=== PATIENT | female | born 1990 | race Caucasian/White ===

== ENCOUNTER → 2021-12-15 15:21 | Outpatient (CLI) | payer OTHER, SELFPAY ==
--- NOTE | ~2021-12-15 | US_ITS ---
EXAMINATION: US OB /maternal detail DATE: 12/15/2021 16:04 INDICATION: Second trimester anatomic survey TECHNIQUE: Real-time ultrasound of the pelvis was performed. COMPARISON: None. FINDINGS: There is a single living fetus in breech presentation. The placenta is anterior and 2.8 cm from the i nternal cervical os. heart rate is 145 beats per minute (bpm). cardiac activity and feta l movement are noted. The amniotic fluid index is subjectively normal. The following anatomy was identified as normal: 4 chamber heart 3 vessel cord cord insertion kidneys urinary bladder stomach spine diaphragm ventricles cisterna magna cerebellum The following biometric data were obtained: Biparietal diameter (BPD): 5.4 cm; head circumference (HC): 20.1 cm; abdominal circumference (AC): 17 .9 cm; femur length (FL): 3.9 cm. These measurements are concordant. Estimated weight is 519 g +/- 77 g, which correlates with the 61st percentile when 04/18/2022 i s used as estimated date of delivery. As single measurements, these parameters are each equal to the following estimated gestational ages w ith ranges of +/- 2 standard deviations: BPD: 22 weeks 3 days ( 20 weeks 5 days - 24 weeks 1 days). HC: 22 weeks 2 days ( 20 weeks 5 days - 23 weeks 5 days). AC: 22 weeks 6 days ( 20 weeks 5 days - 24 weeks 6 days). FL: 22 weeks 3 days ( 20 weeks 5 days - 24 weeks 2 days). estimated gestational age based solely on measurements from this exam is 22 weeks 4 days +/- 1 weeks 4 days. IMPRESSION: 1. Single living fetus in breech presentation. 2. Estimated weight is 519 g +/- 77 g, which correlates with the 61st percentile when 2 is used as estimated date of delivery. Reviewed, dictated and finalized at location F. IMPRESSION: 1. Single living fetus in breech presentation. 2. Estimated weight is 519 g +/- 77 g, which correlates with the 61st per centile when 04/18/2022 is used as estimated date of delivery.
== END ==
PROVIDERS: PCP Obstetrics & Gynecology Gynecology; Visit Provider Obstetrics & Gynecology Gynecology
DX: Z36.9 Encounter for antenatal screening, unspecified (principal); Z3A.22 22 weeks gestation of pregnancy
CPT/HCPCS: 76805

== ENCOUNTER 2022-01-19 15:11 | Outpatient (RCR) | payer OTHER, SELFPAY ==
[2022-01-19 17:10] VITALS: BP 116/72; PULSE 91
[2022-01-19 17:18] LABS: Appearance Urine Clear (Clear); Bilirubin Urine Negative (Negative); Blood Urine Negative (Negative); Glucose Urine UA Negative (Negative); Ketones Urine Negative (Negative); Leukocyte Esterase Ur Negative LEU/UL (Negative); Nitrate Urine Negative (Negative); Protein Urine Negative (Negative); Specific Grav Ur 1.015 (1.001-1.035); Urobilinogen Urine 0.2 mg/dL (<2.0); pH Urine 6.5 (5.0-9.0)
[2022-01-19 17:20] LABS: Add Urine Microscopic? NO; Color Urine Light Yellow (Yellow)
== END 2022-04-19 23:59 | disposition home or self-care (01) ==
LOC: ANHOBOP 15:11
PROVIDERS: Obstetrics & Gynecology; PCP Obstetrics & Gynecology Gynecology; Visit Provider Obstetrics & Gynecology Gynecology
DX: O36.8130 Decreased fetal movements, third trimester, not applicable or unspecified (principal); Z3A.27 27 weeks gestation of pregnancy
CPT/HCPCS: 59025; 81003

== ENCOUNTER → 2022-02-17 14:03 | Outpatient (CLI) | payer OTHER, SELFPAY ==
--- NOTE | ~2022-02-17 | US_ITS ---
EXAMINATION: US OB follow up DATE: 02/17/2022 14:23 INDICATION: Estimated size greater than expected for estimated gestational age. Assess growth a nd amniotic fluid index during third trimester . TECHNIQUE: Real-time ultrasound of the pelvis was performed. The interpreting radiologist was not pre sent for the study. COMPARISON: 12/15/2021 FINDINGS: There is a single living fetus in vertex presentation. The placenta is anterior and not low-lying. F etal heart rate is 144 beats per minute (bpm). The amniotic fluid index is 19.0 cm, which is normal (5th%-95%: 8.8-23.8 cm at 31 weeks estimated gestational age). The following biometric data were obtained: BPD: 8.2 cm -> 32 weeks 6 days Head circumference: 29.3 cm -> 32 weeks 2 days Abdominal circumference: 27.9 cm -> 32 weeks 0 days Femur length: 6.1 cm -> 31 weeks 6 days These measurements are concordant. Head circumference to abdominal circumference ratio: 1.05 (normal range 0.96-1.13). Estimated weight: 1891 g (+/-) 284 g or 4 lbs. 3 oz. (+/-) 10 oz. IMPRESSION: 1. Single living fetus in vertex presentation with heart rate of 144 bpm. 2. Normal amniotic fluid index of 19.0 cm. 3. Estimated weight is 49th percentile by Hadlock criteria when 04/16/2022 is used as the estim ated date of delivery (JANUARY). Please correlate with clinical information or earlier ultrasounds for mo st accurate JANUARY. Reviewed, dictated and finalized at location A. IMPRESSION: 1. Single living fetus in vertex presentation with heart rate of 144 bpm. 2. Normal amniotic fluid index of 19.0 cm. 3. Estimated weight is 49th percentile by Hadlock criteria when 2 is used as the estimated date of delivery (JANUARY). Please correlate with clinic al information or earlier ultrasounds for most accurate JANUARY.
== END ==
PROVIDERS: PCP Family Medicine; Visit Provider Nurse Practitioner
DX: O36.63X0 Maternal care for excessive fetal growth, third trimester, not applicable or unspecified (principal); Z3A.00 Weeks of gestation of pregnancy not specified
CPT/HCPCS: 76816

== ENCOUNTER 2022-04-13 05:39 | Inpatient (IN) | payer OTHER, SELFPAY ==
[2022-04-13] VITALS (84 sets, daily range): BP systolic 95–151; BP diastolic 48–110; PULSE 57–98; RESP 12–16; TEMP 36.3–36.8; O2SAT 86–100; BMI 30.2
[2022-04-13 07:05] LABS: Basophils Percent Auto 0.2 % (0.2-1.2); Eosinophils Percent Auto 0.3 % (0-4.4); Hematocrit 39.3 % (37.0-47.0); Immature Granulocyte Absolute 0.15 K/mm3 (0.00-0.031); Lymphocytes Absolute Auto 2.32 K/mm3 (0.9-3.2); Lymphocytes Percent Auto 15.5 % (18.3-44.2); Mean Corpuscular HGB Conc 33.1 g/dl (32-36); Mean Corpuscular Hemoglobin 31.8 pg (26-34); Mean Corpuscular Volume 96.1 fl (80-100); Mean Platelet Volume 10.1 fl (7.4-10.4); Monocytes Absolute Auto 0.9 K/mm3 (0.1-0.6); Monocytes Percent Auto 5.7 % (2.6-8.5); Neutrophils Absolute Auto 11.5 K/mm3 (1.3-6.7); Neutrophils Percent Auto 77.3 % (45.5-73.1); Platelet Count Result 255 k/mm3 (150-375); Red Blood Count 4.09 M/mm3 (4.2-5.4); Red Cell Distribution Width 12.7 % (11.5-14.5); White Blood Count 14.9 K/mm3 (4.5-10.0)
--- NOTE | 2022-04-13 07:19 | WPDOBADMIT ---
Obstetrics - Admit Note Admission Note: record reviewed. No pertinent additions to the history and/or any subsequent changes in the physical findings that are not consistent with the expected course of the were found. Additions to the history and/or subsequent changes in the physical findings follow. Here for MIL at 39 wks. Cervix 1-2/50/-2 Anterior. AROM with clear fluid.FHT cat. I. Start pitocin.
[2022-04-13] MEDS: OXYTOCIN 30 UNITS/NS 500 ML 30 UNITS/500 ML BAG 6 UNITS IV CONT (08:04)
[2022-04-13] MEDS: LACTATED RINGERS 1,000 ML 125 ML IV CONT ×3 (08:04→19:47)
--- NOTE | 2022-04-13 10:29 | WPDANESEPP ---
Anes - Eval Pre Procedure Procedure: labor epidural Date/Time: 04/13/22 10:29 Preop Diagnosis: labor pain Pre Op Diagnosis: IOL Patient Data Age: 31 Gender: F Height: 1.75 m Weight: 93 kg Last Vital Signs Temp 36.4 C L 04/13/22 10:23 Pulse 69 04/13/22 10:01 BP 126/68 04/13/22 10:01 Allergies Allergy/AdvReac Type Severity Reaction Status Date / Time amoxicillin Allergy Hives Verified 01/19/22 15:35 gluten Allergy Gastrointestinal Verified 01/19/22 15:35 Upset nickel Allergy Rash Verified 01/19/22 15:35 nitrofurantoin Allergy Rash Verified 01/19/22 15:35 [From Macrobid] Home Medications Medication Instructions Recorded Confirmed Type cholecalciferol (vitamin D3) 125 125 mcg PO DAILY 01/19/22 01/19/22 History mcg (5,000 unit) tablet (Vitamin D3) ferrous sulfate 325 mg (65 mg 325 mg PO DAILY 01/19/22 01/19/22 History iron) tablet vit no.95-ferrous 1 tablet PO DAILY 01/19/22 01/19/22 History fumarate 28 mg-folic acid 800 mcg tablet () magnesium 500 mg tablet 15 mg PO DAILY 03/23/22 03/23/22 History Laboratory Tests 04/13/22 04/13/22 04/13/22 06:58 06:58 06:58 WBC 14.9 K/mm3 H K/mm3 (4.5-10.0) RBC 4.09 M/mm3 L M/mm3 (4.2-5.4) Hgb 13.0 g/dL g/dL (12.0-15.0) Hct 39.3 % % (37.0-47.0) MCV 96.1 fl fl (80-100) MCH 31.8 pg pg (26-34) MCHC 33.1 g/dl g/dl (32-36) RDW 12.7 % % (11.5-14.5) Plt Count 255 k/mm3 k/mm3 (150-375) MPV 10.1 fl fl (7.4-10.4) Immature Gran % (Auto) 1.0 % H % (0-0.5) Neut % (Auto) 77.3 % H % (45.5-73.1) Lymph % (Auto) 15.5 % L % (18.3-44.2) [place] % (Auto) 5.7 % % (2.6-8.5) Eos % (Auto) 0.3 % % (0-4.4) Baso % (Auto) 0.2 % % (0.2-1.2) Lymph # (Auto) 2.32 K/mm3 K/mm3 (0.9-3.2) [place] # (Auto) 0.9 K/mm3 H K/mm3 (0.1-0.6) Eos # (Auto) 0.0 K/mm3 K/mm3 (0-0.3) Baso # (Auto) 0.0 K/mm3 K/mm3 (0.0-0.1) Abs Immat Gran (auto) 0.15 K/mm3 H K/mm3 (0.00-0.031) Absolute Neuts (auto) 11.5 K/mm3 H K/mm3 (1.3-6.7) Absolute Nucleated RBC 0.0 K/mm3 K/mm3 (0.0-0.012) Nucleated RBC % 0.0 % % (0.0-0.2) RPR Pending Blood Type A Positive Antibody Screen Negative Patient hx anesthesia problems: none Family hx anesthesia problems: none Results Review: All pre-operative results and documents have been reviewed as part of the pre-operative evaluation. [facility] Family History Family History Other Patient denies significant medical history Social History Social History Smoking status: Never smoker Second hand tobacco smoke exposure: No Substance use: never Spiritual care concerns: No Exam Day of Procedure 04/13/22 10:29
[2022-04-13] MEDS: ONDANSETRON INJ 4 MG/2 ML VIAL IV PUSH ×2 (11:28→17:06)
[2022-04-13] MEDS: FAMOTIDINE 20 MG/2 ML VIAL IV PUSH (15:31)
--- NOTE | 2022-04-13 19:59 | P.PNAN_ITS ---
Anes - Eval Final PreProcedure Day of Procedure 04/13/22 19:59 Heart: regular rate and rhythm Lungs: clear to auscultation and normal air movement Airway: Mallampati scale Neurological: alert and oriented Last oral intake: 2 hours ASA classification: II Emergent: no Anesthetic plan: proceed Anesthesia type and monitoring: regional epidural and standard monitoring Results Review: All pre-operative results and documents have been reviewed as part of the pre- operative evaluation. Informed Consent: The patient's anesthetic plan and its attendant risks and benefits were discussed with the patient/family/POA. Questions were solicited and answers provided to the satisfaction of the patient/family/POA.
--- NOTE | 2022-04-13 20:58 | WPDANESEPN ---
Anes - Epidural Procedure Note Date/Time: 04/13/22 20:58 Consent: I have discussed with the patient/family/POA, the placement of an epidural catheter and the use of epidural narcotic/local anesthetic for labor analgesia and/or postoperative pain management, including associated potential risks, benefits, complications and side effects. I have discussed alternative methods of labor analgesia and/or postoperative pain management. The patient/family/POA, understand(s) and wish(es) to proceed with epidural narcotic/local anesthetic for labor analgesia and/or postoperative pain management. Time-Out: A pre-procedural Time-Out was completed immediately before starting the procedure and confirmed: Patient Identification, Site, Procedure, Patient Position and the Availability of Requisite Equipment. Epidural Insertion Note Patient position: sitting Skin prep: chlorhexidine and sterile drape Needle: 18g Tuohy-Schliff Catheter: 20g Unstyleted Technique: Loss of resistance. Level of insertion: L3/4 Catheter skin livia (cm): 10 Length in epidural space (cm): 5 Skin anesthesia: lidocaine 1% Test dose: 1.5% Lidocaine with [id number] Epi, negative for subarachnoid Inj and negative for intravascular Inj Time of test dose: 20:46 Observations: tolerated well Complications: none
--- NOTE | 2022-04-13 21:00 | WPDANESEPPF ---
Anes - Initial Pre Proc Eval Procedure: labor epidural Date/Time: 04/13/22 20:35 Surgeon: Swetha Velasco MD Pre Op Diagnosis: Labor pain Pre Op Diagnosis: IOL Patient Data Age: 31 Gender: F Height: 1.75 m Weight: 93 kg Last Vital Signs Temp 36.8 C 04/13/22 16:15 Pulse 87 04/13/22 20:55 BP 128/61 04/13/22 20:55 Pulse Ox 100 04/13/22 20:55 Allergies Allergy/AdvReac Type Severity Reaction Status Date / Time amoxicillin Allergy Hives Verified 01/19/22 15:35 gluten Allergy Gastrointestinal Verified 01/19/22 15:35 Upset nickel Allergy Rash Verified 01/19/22 15:35 nitrofurantoin Allergy Rash Verified 01/19/22 15:35 [From Macrobid] Home Medications Medication Instructions Recorded Confirmed Type cholecalciferol (vitamin D3) 125 125 mcg PO DAILY 01/19/22 01/19/22 History mcg (5,000 unit) tablet (Vitamin D3) ferrous sulfate 325 mg (65 mg 325 mg PO DAILY 01/19/22 01/19/22 History iron) tablet vit no.95-ferrous 1 tablet PO DAILY 01/19/22 01/19/22 History fumarate 28 mg-folic acid 800 mcg tablet () magnesium 500 mg tablet 15 mg PO DAILY 03/23/22 03/23/22 History Laboratory Tests 04/13/22 04/13/22 04/13/22 06:58 06:58 06:58 WBC 14.9 K/mm3 H K/mm3 (4.5-10.0) RBC 4.09 M/mm3 L M/mm3 (4.2-5.4) Hgb 13.0 g/dL g/dL (12.0-15.0) Hct 39.3 % % (37.0-47.0) MCV 96.1 fl fl (80-100) MCH 31.8 pg pg (26-34) MCHC 33.1 g/dl g/dl (32-36) RDW 12.7 % % (11.5-14.5) Plt Count 255 k/mm3 k/mm3 (150-375) MPV 10.1 fl fl (7.4-10.4) Immature Gran % (Auto) 1.0 % H % (0-0.5) Neut % (Auto) 77.3 % H % (45.5-73.1) Lymph % (Auto) 15.5 % L % (18.3-44.2) [place] % (Auto) 5.7 % % (2.6-8.5) Eos % (Auto) 0.3 % % (0-4.4) Baso % (Auto) 0.2 % % (0.2-1.2) Lymph # (Auto) 2.32 K/mm3 K/mm3 (0.9-3.2) [place] # (Auto) 0.9 K/mm3 H K/mm3 (0.1-0.6) Eos # (Auto) 0.0 K/mm3 K/mm3 (0-0.3) Baso # (Auto) 0.0 K/mm3 K/mm3 (0.0-0.1) Abs Immat Gran (auto) 0.15 K/mm3 H K/mm3 (0.00-0.031) Absolute Neuts (auto) 11.5 K/mm3 H K/mm3 (1.3-6.7) Absolute Nucleated RBC 0.0 K/mm3 K/mm3 (0.0-0.012) Nucleated RBC % 0.0 % % (0.0-0.2) RPR Pending Blood Type A Positive Antibody Screen Negative Patient hx anesthesia problems: none Family hx anesthesia problems: none Results Review: All pre-operative results and documents have been reviewed as part of the pre-operative evaluation. [facility] Family History Family History Other Patient denies significant medical history Social History Social History Smoking status: Never smoker Second hand tobacco smoke exposure: No Substance use: never Spiritual care concerns: No Anes - Eval Final PreProcedure Day of Procedure 04/13/22 21:00 Patient weight: normal Heart: regular rate and rhythm Lungs: clear to auscultation Airway: Mallampati scale class II Neurological: alert and oriented Last oral intake: 2 hours ASA classification: II Emergent: no Anesthetic plan: proceed Anesthesia type and monitoring: regional epidural and standard monitoring Results Review: All pre-operative results and documents have been reviewed as part of the pre-operative evaluation. Informed Consent: The patient's anesthetic plan and its attendant risks and benefits were discussed with the patient/family/POA. Questions were solicited and answers provided to the satisfaction of the patient/family/POA.
--- NOTE | 2022-04-13 22:29 | PM.IMHP ---
H&P: HPI History of Present Illness Date/Time: 04/13/22 22:29 Chief Complaint: intolerance of labor Narrative: the patient is a 31-year-old 1 at 39 weeks admitted for medical induction of labor. Patient has had slow progress throughout the day and due to random late and variable decelerations the Pitocin has been on and off throughout the day. The patient just had an 8 minute deceleration after which I was called at 10:14 p.m. and I called a for intolerance of labor. On my arrival at 22:26 the patient agrees to the plan. She has no questions at this time. heart tones have recovered however there is minimal variability and continued late decelerations. labs A-positive, rubella nonimmune, RPR negative, hepatitis-B surface antigen negative, HIV negative, group B strep negative. Review of Systems Review of Systems: Comfortable with epidural PMFSH Family History Family History Other Patient denies significant medical history Social History Social History Smoking status: Never smoker Second hand tobacco smoke exposure: No Substance use: never Spiritual care concerns: No Meds Home Medications and Allergies Home Medications Medication Instructions Recorded Confirmed Type cholecalciferol (vitamin D3) 125 125 mcg PO DAILY 01/19/22 01/19/22 History mcg (5,000 unit) tablet (Vitamin D3) ferrous sulfate 325 mg (65 mg 325 mg PO DAILY 01/19/22 01/19/22 History iron) tablet vit no.95-ferrous 1 tablet PO DAILY 01/19/22 01/19/22 History fumarate 28 mg-folic acid 800 mcg tablet () magnesium 500 mg tablet 15 mg PO DAILY 03/23/22 03/23/22 History Allergies Allergy/AdvReac Type Severity Reaction Status Date / Time amoxicillin Allergy Hives Verified 01/19/22 15:35 gluten Allergy Gastrointestinal Verified 01/19/22 15:35 Upset nickel Allergy Rash Verified 01/19/22 15:35 nitrofurantoin Allergy Rash Verified 01/19/22 15:35 [From Macrobid] Vital Signs Vital Signs - 24 hr 04/13/22 06:17 04/13/22 06:30 04/13/22 07:00 Temperature 97.4 F L Pulse Rate 89 80 83 Blood Pressure 127/86 124/74 116/79 Pulse Oximetry 04/13/22 07:30 04/13/22 08:00 04/13/22 08:31 Temperature Pulse Rate 81 80 82 Blood Pressure 124/75 123/79 117/67 Pulse Oximetry 04/13/22 09:00 04/13/22 09:30 04/13/22 10:01 Temperature Pulse Rate 75 74 69 Blood Pressure 115/66 133/75 126/68 Pulse Oximetry 04/13/22 10:23 04/13/22 08:25 04/13/22 10:30 Temperature 97.5 F L 97.3 F L Pulse Rate 79 Blood Pressure 129/74 Pulse Oximetry 04/13/22 11:00 04/13/22 11:27 04/13/22 11:30 Temperature Pulse Rate 88 84 79 Blood Pressure 126/80 150/82 H 143/80 H Pulse Oximetry 04/13/22 12:00 04/13/22 12:30 04/13/22 12:20 Temperature 98.3 F Pulse Rate 85 71 Blood Pressure 123/81 127/78 Pulse Oximetry 04/13/22 13:00 04/13/22 13:31 04/13/22 14:00 Temperature Pulse Rate 73 76 79 Blood Pressure 145/87 H 134/84 137/77 Pulse Oximetry 04/13/22 14:31 04/13/22 14:20 04/13/22 15:00 Temperature 97.8 F Pulse Rate 75 82 Blood Pressure 119/67 117/75 Pulse Oximetry 04/13/22 15:30 04/13/22 16:00 04/13/22 16:31 Temperature Pulse Rate 77 73 82 Blood Pressure 133/83 137/87 135/81 Pulse Oximetry 04/13/22 16:15 04/13/22 17:00 04/13/22 17:31 Temperature 98.3 F Pulse Rate 82 80 Blood Pressure 145/83 H 127/76 Pulse Oximetry 04/13/22 18:01 04/13/22 18:31 04/13/22 19:01 Temperature Pulse Rate 81 73 86 Blood Pressure 124/80 134/84 151/75 H Pulse Oximetry 04/13/22 19:31 04/13/22 20:01 04/13/22 20:30 Temperature Pulse Rate 75 84 85 Blood Pressure 147/110 H 137/76 142/81 H Pulse Oximetry 04/13/22 20:40 04/13/22 20:41 04/13/22 20
--- NOTE | 2022-04-13 23:10 | P.OP_ITS ---
Procedure Note - Detailed Date of Procedure 04/13/22 Pre-op Diagnosis Intrauterine at 39 weeks intolerance of labor Post-op Diagnosis Same Procedure Performed primary low transverse section Surgeon Swetha Velasco MD Anesthesia Epidural Findings The male in the left occiput transverse position weighing 7lb 0oz with 8 [id number] and 9 [id number] Apgars. The cord was wrapped around the infant's arms and the has the cord in its grasp. Normal-appearing tubes, ov donald, and uterus. Description of Procedure The patient was taken to the operating room and placed in the dorsal supine position with a leftward tilt. Once anesthesia was deemed adequate she was prepped and draped in the usual sterile fashion. A Pfannenstiel skin incision was made with a scalpel and carried down to the underlying layer of fascia which was nicked in the midline and extended laterally. Ochsner was used to tent the fascia which was dissected off using sharp dissection. The rectus muscles are in the midline and the peritoneum tented and entered with Metzenbaum scissors. The incision was extended with blunt traction. The bladder blade is placed and the vesicouterine peritoneum grasped with a Peon. The bladder flap was created using Metzenbaum is and manual dissection. The bladder blade is replaced. The lower uterine segment was incised in a transverse fashion with the scalpel and extended with blunt traction. The ear is noted in the incision. The infant's head is delivered while the railway yard assistant applied fundal pressure. The infant was fully delivered and the cord detangled. The cord blood and gases are taken and the placenta removed using manual traction. The uterus is cleared of all clots and debris and exteriorized. The uterine incision was closed using 0 Monocryl in a running locked fashion with the same suture used to imbricate good hemostasis is noted. The cul-de-sac is cleared of clots and the uterus returned to the abdomen the gutters were cleared of clots and the fascia closed using 0 Vicryl in a running fashion. Subcutaneous tissues are irrigated and made hemostatic using Bovie cautery. Skin incision was closed using 4-0 Vicryl in a subcuticular fashion. The Dermaflex was placed over the incision. Sponge, needle, and instrument counts are correct per the OR staff. Patient received Ancef prior to skin incision. Estimated Blood Loss 255 Drains Yes ( Rodas catheter) Packing No Pathology Yes ( placenta) Complications No immediate complications Condition Stable Disposition Floor
[2022-04-13] MEDS: KETOROLAC 30 MG/ML VIAL (*BKC) IV PUSH (23:12)
--- NOTE | 2022-04-13 23:14 | PM.OBDSVD ---
DS: Admitting Diagnosis Discharge Date 04/16/22 Admitting Diagnosis intrauterine at 39 weeks for medical induction of labor DS: Discharge Diagnosis Discharge Diagnosis (1) delivery delivered: Code(s): O82 - Encounter for delivery without indication Status: Acute (2) intolerance to labor, delivered, current hospitalization: Code(s): O77.9 - Labor and delivery complicated by stress, unspecified Status: Acute (3) 39 weeks gestation of : Code(s): Z3A.39 - 39 weeks gestation of Status: Acute OB - DS: Summary OB Procedures : NST and Ultrasound OB Procedures Intrapartum: low cervical, transverse OB Procedures: : None Peripartum Data Delivery Method: Section Procedures: Procedures Operation Date: 04/13/22 22:30 <No data on this case meets the specified criteria> complications: none Status at Discharge Functional status at discharge: independent ambulation Overall status at discharge: patient is progressing back to baseline Time Spent with Patient Time attestation: Total time spent providing and/or coordinating discharge services: DS: Data Data Completed and Pending Labs on day of discharge: Labs from last 24 hours 04/13/22 04/13/22 04/13/22 06:58 06:58 06:58 WBC 14.9 H RBC 4.09 L Hgb 13.0 Hct 39.3 MCV 96.1 MCH 31.8 MCHC 33.1 RDW 12.7 Plt Count 255 MPV 10.1 Immature Gran % (Auto) 1.0 H Neut % (Auto) 77.3 H Lymph % (Auto) 15.5 L [place] % (Auto) 5.7 Eos % (Auto) 0.3 Baso % (Auto) 0.2 Lymph # (Auto) 2.32 [place] # (Auto) 0.9 H Eos # (Auto) 0.0 Baso # (Auto) 0.0 Abs Immat Gran (auto) 0.15 H Absolute Neuts (auto) 11.5 H Absolute Nucleated RBC 0.0 Nucleated RBC % 0.0 RPR Pending Blood Type A Positive Antibody Screen Negative Discharge Plan Discharge Attending physician on discharge: Swetha Velasco Discharging Clinician: Nader Javier Anticipated Discharge Date/Time: 04/16/22 23:15 Patient Disposition: Home, Self-Care Activity: may shower, may drive after 2 weeks and pelvic rest Diet: regular Wound Care Instructions: incision open to air Discharge Instructions: Education: Mom and Baby Guide Given to: Mother Follow-Up: Call your delivering provider's office for an appointment to be seen in: 1 Week [facility]. Appointment Date/Time: April 16, 2022 at 9:00 am What to expect at your follow-up visit: Physical Assessment Call [phone] if you are unable to keep your appointment time. BREAST CARE: * Wear a snug supportive bra. * For engorgement discomfort: Breast Feeding: * Apply warm moist washcloths * Express milk as needed to relieve engorgement * Wear loose clothing Bottle Feeding: * May apply ice packs * For sore nipples: * Identify correct latch-on * Apply warm moist washcloths before and after nursing * Air dry nipples after nursing * May apply Lansinoh cream to nipples ABDOMINAL INCISION: (if applicable) * Allow incision to air dry * Do NOT use lotions for powders on your incision * When showering, allow soap and water to run over the incision, but do not wash incision EPISIOTOMY/PERINEAL CARE: * Until bleeding stops, use your kyle bottle after urinating * Change your pad frequently throughout the day * No tub baths until seen by your physician - You may shower ACTIVITY: * Rest as much as possible. * Do not exercise or lift anything heavier than your baby (such as laundry or other children.) * Avoid stairs or driving as much as possible. * Do not put anything into the vagina. No douching, tampons, or sexual activity until seen by physician.
--- NOTE | 2022-04-13 23:53 | WPDANESEFPP ---
Anes - Eval Final PreProcedure Day of Procedure 04/13/22 23:53 Patient weight: overweight Heart: regular rate and rhythm Lungs: clear to auscultation Neurological: alert and oriented ASA classification: II Emergent: no Anesthetic plan: proceed Anesthesia type and monitoring: regional epidural and standard monitoring Other findings: use existing epid for C/s exam per [facility] Results Review: All pre-operative results and documents have been reviewed as part of the pre-operative evaluation. Informed Consent: The patient's anesthetic plan and its attendant risks and benefits were discussed with the patient/family/POA. Questions were solicited and answers provided to the satisfaction of the patient/family/POA.
[2022-04-14] VITALS (28 sets, daily range): BP systolic 99–127; BP diastolic 53–71; PULSE 58–84; RESP 12–22; TEMP 36.2–36.6; O2SAT 96–100
[2022-04-14 05:24] LABS: Basophils Absolute Auto 0.1 K/mm3 (0.0-0.1); Basophils Percent Auto 0.2 % (0.2-1.2); Hematocrit 38.3 % (37.0-47.0); Hemoglobin 12.3 g/dL (12.0-15.0); Lymphocytes Absolute Auto 1.16 K/mm3 (0.9-3.2); Mean Corpuscular HGB Conc 32.1 g/dl (32-36); Mean Corpuscular Hemoglobin 31.3 pg (26-34); Mean Corpuscular Volume 97.5 fl (80-100); Mean Platelet Volume 10.5 fl (7.4-10.4); Monocytes Absolute Auto 1.6 K/mm3 (0.1-0.6); Monocytes Percent Auto 5.7 % (2.6-8.5); Neutrophils Absolute Auto 25.8 K/mm3 (1.3-6.7); Neutrophils Percent Auto 89.1 % (45.5-73.1); Platelet Count Result 235 k/mm3 (150-375); Red Blood Count 3.93 M/mm3 (4.2-5.4); Red Cell Distribution Width 12.8 % (11.5-14.5)
--- NOTE | 2022-04-14 08:01 | WPDANLDPN2 ---
Anes-Prog Note L&D Date/Time: 04/14/22 08:01 Comfortable throughout: section Neuraxial method: epidural Epidural/Spinal procedure site: clean & non-tender Neuro status: Neuro function grossly intact. Cardiovascular status: normal Respiratory status: normal Airway patency: baseline Mental status: baseline Post-Op hydration status: normal Vital Signs: Last Vital Signs Temp 36.6 C 04/14/22 01:45 Pulse 58 L 04/14/22 01:45 Resp 16 04/14/22 01:45 BP 112/63 04/14/22 01:45 Pulse Ox 97 04/14/22 01:21 O2 Del Method Room Air 04/14/22 01:18 O2 Flow Rate 2 04/13/22 23:45 Pain score (VAS): 3/10 I/O: Intake & Output 04/13/22 04/14/22 04/14/22 23:59 07:59 15:59 Intake Total 1000 Output Total 200 650 Balance 800 -650 Post-procedural complaints: none Patient feedback: Patient satisfied with anesthetic care.
[2022-04-14] MEDS: DEXTROSE 5%/0.45% SOD CHL 1,000 ML 125 ML IV CONT (08:57)
[2022-04-14] MEDS: KETOROLAC 30 MG/ML VIAL (*BKC) IV PUSH ×2 (08:57→16:57)
--- NOTE | 2022-04-14 09:42 | P.PNOB_ITS ---
OB - PN: Subj Subjective Date/time seen: 04/14/22 0725 Patient comments: pain well controlled baby status: nursing well feeding status: exclusively breast feeding OB - PN: Obj Data Labs CBC & Chem 7: 04/14/22 04:28 Labs: Laboratory Results - last 24 hr 04/14/22 04:28 WBC 29.0 H RBC 3.93 L Hgb 12.3 Hct 38.3 MCV 97.5 MCH 31.3 MCHC 32.1 RDW 12.8 Plt Count 235 MPV 10.5 H Immature Gran % (Auto) 1.0 H Neut % (Auto) 89.1 H Lymph % (Auto) 4.0 L [place] % (Auto) 5.7 Eos % (Auto) 0.0 Baso % (Auto) 0.2 Lymph # (Auto) 1.16 [place] # (Auto) 1.6 H Eos # (Auto) 0.0 Baso # (Auto) 0.1 Abs Immat Gran (auto) 0.30 H Absolute Neuts (auto) 25.8 H Absolute Nucleated RBC 0.0 Nucleated RBC % 0.0 OB - PN A/P Plan day: 1 Plan: routine care Time Spent With Patient Time: Total time spent is greater than 50% in coordination of care (as documented) at patient's floor/unit and/or counseling patient: Review of Systems Review of Systems: All systems reviewed & are unremarkable except as noted in HPI and below Exam Const: General: cooperative and no acute distress Nutritional Appearance: average body habitus Orientation/consciousness: patient oriented x3 Limitations: no limitations Resp: Effort & Inspection: normal respiratory effort and able to speak in complete sentences Auscultation: clear to auscultation bilaterally Cardio: Rate: regular rate Peripheral pulses: Peripheral pulses 2+ throughout GI: Inspection: normal to inspection Auscultation: normal bowel sounds : General: Yes bladder normal to palpation Other: Fundus firm Skin: General skin exam: normal color Other: Incision approximated. Clean, dry, intact. Neuro: General: patient oriented x3 Cognition (Neuro): normal cognition Speech: normal speech Extrem: General: normal to inspection Psych: Appearance: grossly normal Mental Status: mental status grossly normal Speech and movement: Normal speech and movement present Affect: normal affect Attitude: cooperative Thought process: Normal thought process present
[2022-04-14 10:18] LABS: Rapid Plasma Reagin Non-Reactive (NonReactive)
[2022-04-14] MEDS: ONDANSETRON INJ 4 MG/2 ML VIAL IV PUSH (10:45)
--- NOTE | 2022-04-14 11:37 | PC.NURSE ---
0910 Introductions were made, then consulted with patient to assess needs related to . Mother led the conversation with her?ability to latch and effectively breastfeed with no pain. Mother welcomed discussion on what to look for to confirm a optimal latch, good suck/swallow/pause ratios, visualizing a rocking jaw motion, what her nipple is to look like when her detaches, how to detach infant if needed, and good intake/output using the pie demonstration. Resources provided for inpatient and outpatient services using a resource guide and mom/baby guide. Mother voiced understanding of information and will call if there is a request for assistance. Reported to the primary RN.
[2022-04-15] MEDS: IBUPROFEN 600 MG TABLET PO ×3 (04:26→17:28)
[2022-04-15] MEDS: HYDROcodone/acetaminophen (*CRX) 5-325 MG TABLET 1 TAB PO ×3 (04:26→17:29)
[2022-04-15 07:10] VITALS: BP 106/60; PULSE 75; RESP 16; TEMP 36.6; O2SAT 98
--- NOTE | 2022-04-15 07:22 | PM.OBPNVD ---
OB - PN: Subj Subjective Date/time seen: 04/15/22 07:22 Patient comments: no complaints, pain well controlled, tolerating diet and flatus present OB - PN: Obj Data Labs CBC & Chem 7: 04/14/22 04:28 Labs: Laboratory Results - last 24 hr 04/13/22 06:58 RPR Non-reactive OB - PN A/P Plan day: 1 Plan: routine care Comments: patient doing well H/H stable afebrile, VSS incision C/D/I glaser removed, voiding spontaneously continue routine post op care Time Spent With Patient Time: Total time spent is greater than 50% in coordination of care (as documented) at patient's floor/unit and/or counseling patient: Time with patient: less than 15 minutes Review of Systems Constitutional: Constitutional: Reports no additional constitutional complaints Cardiovascular: Cardiovascular: Reports no additional cardiovascular complaints Respiratory: Respiratory: Reports no additional respiratory complaints Gastrointestinal: Gastrointestinal: Reports no additional gastrointestinal complaints Genitourinary: Genitourinary: Reports no additional female genitourinary complaints Exam Const: General: comfortable and no acute distress Resp: Effort & Inspection: normal respiratory effort Auscultation: clear to auscultation bilaterally Cardio: Rate: regular rate GI: GI Palp: Yes Soft to palpation, Yes Tenderness to palpation present (GI) (around incision ) and No Guarding due to palpation present (GI) Auscultation: normal bowel sounds Other: incision C/D/I, covered with Dermabond Psych: Appearance: grossly normal Mental Status: mental status grossly normal Affect: normal affect
[2022-04-15] MEDS: DOCUSATE SODIUM 100 MG CAPSULE PO ×2 (10:19→17:28)
[2022-04-15] MEDS: MULTIVIT/MIN/PREN/FOL AC/IRON TABLET 1 TAB PO (10:21)
[2022-04-15 21:12] VITALS: BP 113/73; PULSE 75; RESP 16; TEMP 36.3; O2SAT 98
--- NOTE | 2022-04-16 07:22 | PM.OBDSVD ---
DS: Admitting Diagnosis Discharge Date 04/16/22 Admitting Diagnosis intrauterine at term DS: Discharge Diagnosis Discharge Diagnosis Plan same OB - DS: Summary OB Procedures : None OB Procedures Intrapartum: OB Procedures: : None Peripartum Data Delivery Method: Section Procedures: Procedures Operation Date: 04/13/22 22:30 Actual Procedure Side Surgeon p Section Not Applicable Swetha Velasco MD complications: none Status at Discharge Functional status at discharge: independent ambulation Overall status at discharge: patient is progressing back to baseline Time Spent with Patient Time attestation: Total time spent providing and/or coordinating discharge services: Time spent: Less than 30 minutes Exam Const: General: comfortable and no acute distress Resp: Effort & Inspection: normal respiratory effort Auscultation: clear to auscultation bilaterally Cardio: Rate: regular rate GI: Inspection: non-distended GI Palp: Yes Soft to palpation, No Firmness to palpation present (GI), Yes Tenderness to palpation present (GI) (mild tenderness over incision ) and No Guarding due to palpation present (GI) Auscultation: normal bowel sounds Psych: Appearance: grossly normal Mental Status: mental status grossly normal DS: Data Data Completed and Pending Pending studies at discharge: Pending at discharge 04/13/22 22:52 Surgical [PTH] Routine Discharge Plan Discharge Attending physician on discharge: Swetha Velasco Discharging Clinician: Nader Javier Anticipated Discharge Date/Time: 04/16/22 23:15 Patient Disposition: Home, Self-Care Activity: may shower, may drive after 2 weeks and pelvic rest Diet: regular Wound Care Instructions: incision open to air Stand Alone Forms: General Discharge Information Follow-up/Referrals: Swetha Velasco MD [Physician] - 1 Week ( and 6 weeks) Discharge Medications: New hydrocodone-acetaminophen 5-325 mg tablet 1 tablet PO Q6H PRN (Reason: pain) Qty: 30 0RF ibuprofen 600 mg Tablet 600 mg PO Q6H PRN (Reason: Cramping) Qty: 30 0RF acetaminophen [Mapap (acetaminophen)] 325 mg Tablet 650 mg PO Q6H PRN (Reason: Mild Pain (1-3)) Qty: 30 0RF Continued ferrous sulfate 325 mg (65 mg iron) Tablet 325 mg PO DAILY cholecalciferol (vitamin D3) [Vitamin D3] 125 mcg (5,000 unit) Tablet 125 mcg PO DAILY PNV cmb#[id number]-ferrous fumarate-FA [] 28 mg iron- 800 mcg Tablet 1 tablet PO DAILY magnesium 500 mg Tablet 15 mg PO DAILY Date of admission: 04/13/22 05:39 Primary Care Provider: PHYSICIAN,RESIDENT SERVICES COORDINATOR Admitting Provider: Swetha Velasco Attending physician on admission: Swetha Velasco Condition: Stable
[2022-04-16 08:30] VITALS: BP 114/71; PULSE 82; RESP 16; TEMP 36.6; O2SAT 100
[2022-04-16] MEDS: MULTIVIT/MIN/PREN/FOL AC/IRON TABLET 1 TAB PO (08:35)
[2022-04-16] MEDS: DOCUSATE SODIUM 100 MG CAPSULE PO (08:35)
[2022-04-16] MEDS: HYDROcodone/acetaminophen (*CRX) 5-325 MG TABLET 1 TAB PO (08:35)
[2022-04-16] MEDS: MEASLES,MUMPS,RUBELLA VACCINE 0.5 ML VIAL SUB-Q (08:37)
[2022-04-16] MEDS: IBUPROFEN 600 MG TABLET PO (08:37)
--- NOTE | 2022-04-16 12:33 | PC.NURSE ---
Patient viewed the discharge video Mother & Baby Care, The First Two Weeks . Patient was given the opportunity and encouraged to ask questions. Patient verbalized understanding of information shared and has been given the mother/baby guide for home reference.
[2022-04-17 08:32] VITALS: BP 130/84; PULSE 90; RESP 16; TEMP 37.2; O2SAT 99
== END 2022-04-16 13:11 | disposition home or self-care (01) | DRG 788 ==
LOC: ANHLDR 23:16 → ANHOB2 04-16 11:29 → ANHLDR 04-18 10:48 → ANHOB2 04-18 10:48
PROVIDERS: Admitting Provider Obstetrics & Gynecology Gynecology; Visit Provider Student in an Organized Health Care Education/Training Program
PROC: 10D00Z1 Extraction of Products of Conception, Low, Open Approach (ICD-10-PCS; CPT 59514; principal; 2022-04-13 22:30)
DX: O69.82X0 Labor and delivery complicated by other cord entanglement, without compression, not applicable or unspecified (principal); Z37.0 Single live birth; Z3A.39 39 weeks gestation of pregnancy; O36.8330 Maternal care for abnormalities of the fetal heart rate or rhythm, third trimester, not applicable or unspecified
CPT/HCPCS: 36415; 85025; 86592; 86850; 86900; 86901; 87086; 87088; 88307; 90710; A9270; J1885; J2274; J2405; J2590; J2795; J7120

== ENCOUNTER 2022-05-01 13:05 | Outpatient (RCR) | payer OTHER, SELFPAY ==
--- NOTE | 2022-04-27 15:50 | PC.NURSE ---
In- 1307 Out- 1456 Reason for visit: Latch issues with an infant that is not back to weight on day 14. History: mother is concern with latch issues and her getting enough to eat for weight gain. Mother has no significant medical history for decrease milk supply with exception of having a primary section and pumping with a Motif using a flange size (28 mm) that is too large. Assessment has bilateral breast firm before and softer afterwards. Mother is unsure when her milk came to full volume, hasn't noticed substantial breast changes after delivery, however, mother is often. Everted nipples that are intact and without injury. Mother states there is slight discomfort initially with the latch, then it subsides. Mother breast feeds 8-10 times in a 24 hour period for about 20 minutes on each side. Infant History: is in good health with exception of a concern of not back to weight at 14 days old. recently went 24-48 hours without a stool, then parents supplemented feedings. There have been 6 or more voids and 2 yellow/brown grainy stools in the last 24 hours. Observations: Mother works with her well. Infant latches shallow at times with non-nutritive suckling. RN encouraged mother to bring closer into her body with 's chin buried into the breast giving Henry a big mouthful after a big, open, wide gape stimulating with touch, talk and breast massage to keep him actively drinking. When slows with drinking and begins to non-nutritive suckling, mother is reminded of how to detach with her finger and offer the other breast. Mother is reminded of the optimal latch with deep rocking motion. If infant breast feeds on the 2nd side and appears to want more she can then offer the 1st side again using a different position. After on both breast with infant drinking, then to go ahead and supplement. weight: 3180g Lowest weight: 2926g Last weight: 6.8 11/ at Dr. Mendoza's office Pre-feed weight: 2976g Post-feed weight: 2990g ,then infant was supplemented with formula to meet the needs for weight gain. Plan of Care: Plan of care is to take a few days to focus on rest, improving her eating, and hang out with her infant skin to skin on demand planning to encourage every 2- 2.5 hours while awake, then on demand at night encouraging about every 3 hours. Parents were instructed to only allow one 4-5 hour stretch in 24 hours for now. Mother was encouraged to decrease her flange size (24mm) after being measured to improve stimulation for milk production with a hospital grade pump for the next three days. Called parents to confirm that Henry will be supplemented 1.8-2 oz with each feeding for 8-10 feedings in a 24 hour period until milk supply has increased and is satisfied. Parents are aware of watching for adequate poops and pees. Follow up plans: Parents have a follow up appt on Sunday with for a weighted feeding.
== END 2022-07-26 23:59 | disposition home or self-care (01) ==
LOC: ANHOBOP 13:05
PROVIDERS: Visit Provider Obstetrics & Gynecology Gynecology
DX: Z39.1 Encounter for care and examination of lactating mother (principal)
CPT/HCPCS: 99212; 99213; G0463